=== PATIENT | female | born 1995 | race Caucasian/White ===

== ENCOUNTER 2020-09-20 22:09 | Emergency (ER) | payer OTHER ==
--- NOTE | 2020-09-20 23:36 | ER Document Report ---
ED Medical Screen (RME) - General Chief Complaint: Congestion Stated Complaint: TROUBLE BREATHING/COVID + Time Seen by Provider: 09/20/20 23:28 Primary Care Provider: XIOMARA HANSEN MD [Primary Care Provider] - Follow up as needed Mode of Arrival: Ambulatory Information source: Patient - HPI Patient complains to provider of: MORIS RUBY [facility] Notes: 09/20/20 23:35 Patient is here with complaints of sore throat and nasal congestion and shortness of breath. The patient is 36 weeks . Her was positive for Covid. She started having symptoms on Saturday and was tested Saturday and found out that she is positive for Covid as well. She states that she has some nasal congestion which makes it difficult for her to breathe through her nose. She also complains of a sore throat. She states that occasionally she feels like her throat is swollen and making it difficult for her to breathe. She denies any current chest pain. No fever. No vomiting. No abdominal pain. No vaginal bleeding. Exam: No distress, nontoxic appearing. Not hypoxic. Lungs clear and equal throughout. Heart sounds normal. Gravid abdomen. Posterior pharynx with mild erythema and swelling with no exudate. Uvula midline. No peritonsillar abscess. Anterior cervical lymphadenopathy bilaterally. An initial examination was made on the patient as part of the triage process, and it was determined a more comprehensive evaluation was necessary. Initial orders were placed and patient was transferred to another provider in the ED who assumed care and finished evaluation and plan. - Related Data Allergies/Adverse Reactions: No Known Allergies Allergy (Unverified 09/20/20 23:28) Home Medications: PRE-NATALS Past Medical History - Social History Frequency of alcohol use: None Drug Abuse: None Doctor's Discharge - Discharge Referrals: XIOMARA HANSEN MD [Primary Care Provider] - Follow up as needed
--- NOTE | 2020-09-21 01:20 | RADIOLOGY REPORT (SQ) ---
AP chest radiograph: 09/21/2020 12:18 AM VASCULAR ULTRASOUND TECHNICIAN Indication: 25-year old patient with dyspnea and COVID infection. Comparison: None available Findings: The cardiomediastinal silhouette is normal in size. No pneumothorax is seen. There bilateral interstitial airspace opacities present most pronounced within the lung bases. This is most pronounced at the right side. No discrete pleural effusion is apparent. Impression: There are bilateral interstitial airspace opacities concerning for developing infection, right greater than left.
[2020-09-21 03:21] VITALS: BP 113/75
== END 2020-09-21 06:06 | disposition left against medical advice (07) ==
LOC: ER 22:09
DX: O98.513 Other viral diseases complicating pregnancy, third trimester (principal); U07.1 COVID-19; O99.513 Diseases of the respiratory system complicating pregnancy, third trimester; J02.9 Acute pharyngitis, unspecified; O26.893 Other specified pregnancy related conditions, third trimester; R09.81 Nasal congestion; R06.02 Shortness of breath; Z3A.36 36 weeks gestation of pregnancy; Z53.20 Procedure and treatment not carried out because of patient's decision for unspecified reasons
CPT/HCPCS: 71045; 87070; 87880; 99281